=== PATIENT | male | born 1945 | race Caucasian/White ===

== ENCOUNTER 2016-05-18 14:37 | Emergency (ER) | payer MEDICARE ==
--- NOTE | ~2016-05-18 | MR18 ---
[facility] A Service of [facility] RADIOLOGY TEXT RESULTS PATIENT: KOURTNEY BARNETT LOCATION: [place] : 47 UNIT #: [id number] AGE: [address]: Adrian Zapata DO SEX: M ORDER DR: [id number] [facility] [address] [place], [place] [address] [id number] E MR#: [id number] Acc #: [id number] NAME: KOURTNEY BARNETT. : 1945 SEX: M STUDY DATE/TIME: 05/18/2016 16:16 UNIT: [facility] ROOM: STUDY DESCRIPTION: MR Brain Wo Contrast Attending Physician: Adrian Zapata D.O. Ordering Physician: Adrian Zapata D.O. Primary Care Physician: Mahin Harris M.D. MRI CENTER REPORT This report is preliminary unless electronic signature is present. EXAM MRI brain without contrast HISTORY Acute onset memory loss today. FINDINGS MRI brain was performed without contrast. There is no evidence of recent ischemia or infarct. Exam sensitivity is partly limited by motion. Mild chronic ischemic changes in the periventricular and subcortical white matter bilaterally, and in the central sabra. No focal atrophy, ventricular dilatation, midline shift, or extraaxial fluid collection. IMPRESSION 1. No acute findings. 2. No recent ischemia or infarct. 3. Mild chronic ischemic changes in the periventricular and subcortical white matter bilaterally and in the central sabra. Dictated by... Brian Burt M.D. THIS IS AN ELECTRONICALLY VERIFIED REPORT Brian Burt M.D. at 05/19/2016 11:24 PM DFL/psc TD: 05/19/2016 03:21 JOB #: [id number] [facility] A Service of [facility] RADIOLOGY TEXT RESULTS PATIENT: KOURTNEY BARNETT LOCATION: [facility] : 47 UNIT #: [id number] AGE: [address]: Adrian Zapata DO SEX: M ORDER DR: MRI CENTER REPORT COPY
[2016-05-18 14:31] LABS: BASOPHIL% 0.8 % (0-2.5); EOSINOPHIL# 0.2 X10e3 (0-0.7); EOSINOPHIL% 3.9 % (0.0-7.0); HEMATOCRIT 40.8 % (38.0-50.0); HEMOGLOBIN 13.5 gm/dL (13.0-16.0); LYMPHOCYTE# 1.6 X10e3 (1.0-3.5); LYMPHOCYTE% 30.5 % (17.0-45.0); MEAN CELL VOLUME 93.3 FL (83-96); MEAN CORPUSCULAR HEMOGLOBIN 30.8 PG (28-34); MEAN PLATELET VOLUME 7.5 FL (6.5-11.5); MONOCYTE# 0.8 X10e3 (0-1.0); MONOCYTE% 14.4 % (3.0-12.0); NEUTROPHIL# 2.7 X10e3 (1.5-7.1); NEUTROPHIL% 50.4 % (40-75); PLATELET COUNT 227 X10e3 (140-420); RED BLOOD COUNT 4.38 X10e (3.90-5.60); WHITE BLOOD COUNT 5.3 X10e3 (4.0-10.5)
[2016-05-18 14:33] LABS: DIFF IND NO
[~2016-05-18 14:37] MED LIST: ADVAIR INH; ALBUTEROL MININEB NEB; ALBUTEROL17 GM INH; ALEVE-D SINUS-1 EACH PO; ALISKIREN; ALLEGRA-D1 TAB.SR1 PO; ALPRAZOLAM PO; AMLODIPINE BESYL5 MG PO; ASPIRIN EC81 M1 PO; ASPIRIN PO; AVELOX400 MG PO; BACLOFEN10 MG PO; BAYER CHEWABLE81 MG PO; BENADRYL PO; BENADRYL25 MG PO; BENICAR PO; CARVEDILOL6.25 MG PO; CERTAGEN PO; CIPRO PO; COMBIVENT INH14.7 GM INH; COMBIVENT U/D3 M2 INH; COREG CR PO; COREG PO; COREG12.5 M1 PO; COREG3.125 MG PO; COREG6.25 MG PO; CRESTOR PO; DAILY VALUE1 EACH PO; DELTASONE20 MG PO; DICYCLOMINE HCL20 MG PO; FERROUS SULFATE PO; FLAGYL PO; FLEXERIL PO; FLEXERIL10 MG PO; FOLIC ACID1 MG PO; GABAPENTIN300 M2 PO; GABAPENTIN400 MG PO; HYDRALAZINE HCL25 MG PO; HYDROCHLOROTHIA25 MG PO; HYDROCODON-ACE1 EACH PO; HYDROCODONE-A1 UDTA4 PO; HYDROCODONE-APA1 T33 PO; IMODIUM AD PO; IRON PO; KCL PO; LASIX PO; LEVAQUIN PO; LEVAQUIN750 MG PO; LEVOFLOXACIN5 ML PO; LIBRIUM PO; LISINOPRIL PO; LISINOPRIL10 MG PO; LOPRESSOR PO; LORTAB 7.5-5001 TAB PO; MUCINEX DM1 TAB.SR . PO; NEURONTIN PO; NEURONTIN300 MG PO; NITROGYLCERIN SUBLINGUAL; NORCO 5/325 TAB1 TAB PO; NORVASC PO; OMEPRAZOLE40 MG PO; ORAPRED ODT10 MG PO; OXYCODONE HCL10 MG PO; OXYCODONE HCL5 MG PO; OXYCONTIN PO; OXYGEN; PATIENT'S PHARMACY; PLAVIX PO; PRAVACHOL PO; PREDNISONE PO; PRILOSEC PO; PRILOSEC20 MG PO; PROTONIX PO; QUESTRAN PACK4 G/PKT PO; QUESTRAN POWDE378 GM PO; REGLAN PO; REMERON15 MG PO; SPIRIVA18 MCG INH; SYMBICORT INH; SYMBICORT80 INH; TEKTURNA; TEKTURNA HCT PO; THIAMINE HCL50 MG PO; TIAZAC PO; ULTRAM PO; VYTORIN 10/40 T1 TAB PO; ZOCOR PO
[2016-05-18 14:43] LABS: PARTIAL THROMBOPLASTIN TIME 27.5 SECONDS (23.5-31.3); PROTHROMBIN TIME (PATIENT) 10.3 SECONDS (9.6-11.5)
[2016-05-18 14:58] LABS: ALBUMIN SERUM 4.2 g/dL (3.5-5.0); ALKALINE PHOSPHATASE 52 U/L (32-92); ALT (SGPT) 13 U/L (10-40); AST (SGOT) 28 U/L (10-42); BILIRUBIN, DIRECT 0.1 mg/dL (0.0-0.2); BILIRUBIN,INDIRECT 0.7 mg/dL (0.0-0.9); BILIRUBIN,TOTAL 0.8 mg/dL (0.2-2.0); BLOOD UREA NITROGEN 9 mg/dL (9-23); CALCIUM SERUM 8.4 mg/dL (8.4-10.2); CARBON DIOXIDE 29 mmol/L (22-31); CHLORIDE 94 mmol/L (100-111); CREATININE SERUM 0.9 mg/dL (0.6-1.4); GLOM FILT RATE Estimated ABOVE60 mL/min (>60); GLUCOSE FASTING 97 mg/dL (70-110); POTASSIUM 4.5 mmol/L (3.5-5.1); PROTEIN TOTAL SERUM 6.8 g/dL (6.0-8.3); SODIUM 130 mmol/L (135-145)
[2016-05-18 15:13] LABS: POC - CKMB 2.1 ng/mL (0.0-7.9); POC - TROPONIN <0.05 ng/mL (<=0.05)
[2016-05-18 17:41] LABS: URINE SOURCE CLEAN CATCH
[2016-05-18 17:56] LABS: URINE APPEARANCE CLEAR; URINE BILIRUBIN NEG (NEG); URINE BLOOD NEG (NEG); URINE COLOR YELLOW; URINE GLUCOSE NEG (NEG); URINE KETONE NEG (NEG); URINE LEUKOCYTE ESTERASE NEG (NEG); URINE NITRATE NEG (NEG); URINE PROTEIN NEG (NEG); URINE SPECIFIC GRAVITY 1.007 (1.003-1.035); URINE UROBILINOGEN 0.2 MG/DL (NEG)
[2016-05-18 18:00] LABS: CULTURE INDICATED? NO
== END 2016-05-18 19:11 | disposition home or self-care (01) ==
LOC: CED 14:37
PROVIDERS: Emergency Medicine
DX: E87.1 Hypo-osmolality and hyponatremia (principal); J44.9 Chronic obstructive pulmonary disease, unspecified; I10 Essential (primary) hypertension; K21.9 Gastro-esophageal reflux disease without esophagitis; F41.9 Anxiety disorder, unspecified; F32.9 Major depressive disorder, single episode, unspecified; Z90.49 Acquired absence of other specified parts of digestive tract; Z98.890 Other specified postprocedural states; Z79.899 Other long term (current) drug therapy
CPT/HCPCS: 36415; 70551; 80048; 80076; 81003; 82553; 84484; 85025; 85610; 85730; 96360; 99284